=== PATIENT | female | born 1990 | race Caucasian/White ===

== ENCOUNTER 2017-04-19 18:20 | Emergency (ER) | payer OTHER ==
--- NOTE | 2017-04-19 18:42 | ERPHSYRPT ---
- History of Present Illness Time Seen by Provider: 04/19/17 18:23 Source: patient Exam Limitations: no limitations Physician History: patient cc of palpatations more frequently then usual times 2 days; notices mostly when trying to go to sleep; hasn't been sleeping well; no CP or SOB with it; NO N&V; no travel; no drugs 2 cups of coffee daily and maybe a coke; smokes ; no alcohol ; no meds OTC; no fevernot on IM meds Timing/Duration: yesterday, intermittent Activities at Onset: rest (trying to sleep), other (doesn't notice at work) Quality: other (none) Chest Pain Radiation: no radiation Severity of Pain-Max: none Severity of Pain-Current: none Modifying Factors: Improves With: lying down ( worse), other (activity improves) Nitro Today/Relief: no nitro taken today Aspirin Treatment Today: no aspirin today Associated Symptoms: denies symptoms Prior Chest Pain/Cardiac Workup: no prior chest pain Allergies/Adverse Reactions: No Known Drug Allergies Allergy (Unverified 05/09/15 21:17) Home Medications: No Home Meds 10/14/11 [History] Hx Tetanus, Diphtheria Vaccination/Date Given: No Hx Influenza Vaccination/Date Given: No Hx Pneumococcal Vaccination/Date Given: No - Review of Systems Constitutional: No Symptoms Eyes: No Symptoms Ears, Nose, & Throat: No Symptoms Respiratory: No Cough, No Dyspnea, No Wheezing Cardiac: Palpitations, No Chest Pain, No Edema, No Syncope, No Orthopnea Abdominal/Gastrointestinal: No Abdominal Pain, No Nausea, No Vomiting, No Diarrhea Genitourinary Symptoms: No Symptoms Musculoskeletal: No Symptoms Skin: No Symptoms Neurological: No Symptoms Psychological: Anxiety, No Alcohol Abuse, No Drug Abuse Endocrine: No Symptoms Hematologic/Lymphatic: No Symptoms Immunological/Allergic: No Symptoms - Past Medical History Pertinent Past Medical History: Yes Other Medical History: HIGH CHOLESERTEOL, pt states 3 miscarrages noted - Past Surgical History Past Surgical History: No - Social History Smoking Status: Current every day smoker Exposure to second hand smoke: Yes Alcohol Use: Socially Drug Use: none Patient Lives Alone: Yes Significant Family History: heart disease - Female History Hx Now: No - Nursing Vital Signs Nursing Vital Signs: Initial Vital Signs Temperature 97.5 F 04/19/17 18:36 Pulse Rate 126 H 04/19/17 18:36 Respiratory Rate 20 04/19/17 18:36 Blood Pressure 135/83 04/19/17 18:36 O2 Sat by Pulse Oximetry 97 04/19/17 18:36 Pain Scale Pain Intensity 0 - Physical Exam General Appearance: mild distress, alert, anxiety Eye Exam: PERRL/EOMI, eyes nml inspection, No photophobia Ears, Nose, Throat Exam: normal ENT inspection, TMs normal, pharynx normal, moist mucous membranes Neck Exam: normal inspection, non-tender, supple, full range of motion, No meningismus, No carotid bruit, No JVD, No thyromegaly Respiratory Exam: normal breath sounds, lungs clear, airway intact, No chest tenderness, No respiratory distress Cardiovascular Exam: regular rate/rhythm, normal heart sounds, normal peripheral pulses, tachycardia (120), No murmur, No friction rub Gastrointestinal/Abdomen Exam: soft, normal bowel sounds, No tenderness, No guarding, No pulsatile mass, No organomegaly Pelvic Exam: deferred Rectal Exam: deferred Back Exam: normal inspection, normal range of motion, No CVA tenderness, No vertebral tenderness, No rash Extremity Exam: normal inspection, normal range of motion, No aneesh's sign, No pedal edema Neurologic Exam: alert, oriented x 3, cooperative, 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 tested, normal mood/affect (anxious; mild hyperventilation), nml cerebellar function, nml station & gait, sensation nml Skin Exam: normal color, warm, dry, No rash Lymphatic Exam: No adenopathy SpO2 Interpretation: normal SpO2: 98 Oxygen Delivery: Room Air - Course Nursing assessment & vital signs reviewed: Yes EKG Interpreted by Me: RATE (119), Sinus Tach, NORMAL AXIS, NORMAL INTERVALS, NORMAL QRS, Non-specific ST Changes (low voldtage borderline and poor R wave from v1- V4; ), Other (unchanged from10-14-11) Rhythm Strip: Rate (120), Normal Sinus Rhythm - Radiology Exams Chest X-ray Interpretation: Interpreted by me, Negative, No Pneumonia, No Pneumothorax , Nml Heart Size, Nml Mediastinum Ordered Tests: Active Orders 24 hr Category Date Time Status In[employer] STAT Care 04/19/17 18:33 Active EKG-ER Only STAT Care 04/19/17 18:32 Active CHEST 1 VIEW (PORTABLE) Stat Exams 04/19/17 18:33 Taken BMP Stat Lab 04/19/17 18:45 Completed CBC W DIFF Stat Lab 04/19/17 18:45 Completed MAGNESIUM Stat Lab 04/19/17 18:45 Completed Medication Summary Generic Name Dose Route Start Last Admin Trade Name Carlos PRN Reason Stop Dose Admin Sodium Chloride 1,000 mls @ 100 mls/hr 04/19/17 18:45 04/19/17 18:54 Sodium Chloride 0.9% 1000 Ml IV 05/19/17 18:44 100 mls/hr .Q10H NITIN Administration Sodium Chloride 1,000 mls @ 500 mls/hr 04/19/17 19:27 04/19/17 19:36 Sodium Chloride 0.9% 1000 Ml IV 04/19/17 21:26 500 mls/hr .Q2H STA Administration Potassium Chloride 20 meq 04/19/17 19:43 Klor Con 10 Meq PO 04/19/17 19:44 STAT ONE Discontinued Medications Generic Name Dose Route Start Last Admin Trade Name Carlos PRN Reason Stop Dose Admin Metoprolol Tartrate 25 mg 04/19/17 18:46 04/19/17 18:54 Lopressor 25mg Tab PO 04/19/17 18:47 25 mg STAT ONE Administration Metoprolol Tartrate Confirm 04/19/17 18:53 Lopressor 25mg Tab Administered 04/19/17 18:54 Dose 25 mg .ROUTE .[facility] Lab/Rad Data: Laboratory Result Diagrams 04/19/17 18:45 04/19/17 18:45 Laboratory Results 04/19/17 04/19/17 Range/Units 18:45 18:45 WBC 6.3 (4.0-10.5) K/mm3 RBC 4.96 (4.1-5.4) M/mm3 Hgb 14.2 (12.0-16.0) gm/dl Hct 42.7 (35-47) % MCV 86.1 (78-100) fl MCH 28.6 (26-32) pg MCHC 33.3 (32-36) g/dl RDW 13.6 (11.5-14.0) % Plt Count 238 (150-450) K/mm3 MPV 11.3 H (6-9.5) fl Gran % 52.7 (36.0-66.0) % Lymphocytes % 34.6 (24.0-44.0) % Monocytes % 8.4 (0.0-12.0) % Eosinophils % 3.8 (0.00-5.0) % Basophils % 0.5 (0.0-0.4) % Basophils # 0.03 (0-0.4) Sodium 140 (136-145) mEq/L Potassium 3.2 L (3.5-5.1) mEq/L Chloride 103 (98-107) mEq/L Carbon Dioxide 24.1 (21-32) mEq/L Anion Gap 16.0 H (5-15) MEQ/L BUN 13 (9-20) mg/dL Creatinine 0.84 (0.55-1.30) mg/dl Estimated GFR > 60 ML/MIN Glucose 145 H (70-110) MG/DL Calcium 9.3 (8.5-10.1) mg/dL Magnesium 2.2 (1.8-2.4) mg/dL reviewed - Progress Progress: improved (after meds adn IV fluids), re-examined Air Movement: good Progress Note: 04/19/17 18:45 will get ekg; CXR and labs and recheck 04/19/17 19:28 rechecked and VS improving after meds and IV fluids; cbc wnl; w 04/19/17 19:43 improved with meds and IV fluids; discussed findings and instructions given Blood Culture(s) Obtained: No Antibiotics given: No Counseled pt/family regarding: lab results, diagnosis, need for follow-up, rad results, smoking cessation - Departure Time of Disposition: 20:00 Departure Disposition: Home Clinical Impression: Heart palpitations, Sinus tachycardia by electrocardiogram, Hypokalemia Clinical Impression: (Ruled Out): Strep pharyngitis Condition: Stable Critical Care Time: No Referrals: MARTIN BROWN [Primary Care Provider] - Instructions: Hypokalemia Additional Instructions: rest; good sleep; avoid caffeine and other stimulants; follow up with lmd to check thyroid Potassium rich diet Follow-up with family doctor as directed. Call for appointment. Return if any problems. If you smoke please stop. Call or follow up with your family doctor for assistance if you need it to stop. Please wear your seatbelt when driving. Have a nice day. Thank you for allowing us to participate in your care today. :o) Dr Elías Colon Prescriptions: Potassium Chloride 20 Meq [Klor-Con 20 MEQ] 20 meq PO DAILY #14 tab
[2017-04-19] MEDS ORDERED: Sodium Chloride 0.9% 1000 ML 1,000 ML IV SCH (18:45)
[2017-04-19] MEDS ORDERED: Lopressor 25MG Tab PO ONE (18:46)
[2017-04-19] MEDS ORDERED: Sodium Chloride 0.9% 1000 ML 1,000 ML ONE (18:53)
[2017-04-19] MEDS ORDERED: Lopressor 25MG Tab ONE (18:53)
[2017-04-19 19:19] LABS: BASOPHIL % 0.5 % (0.0-0.4); Eosinophil % 3.8 % (0.00-5.0); Granulocytes % 52.7 % (36.0-66.0); Lymphocytes % 34.6 % (24.0-44.0); Mean Cell Volume 86.1 fl (78-100); Mean Corpuscular Hemoglobin 28.6 pg (26-32); Mean Platelet Volume 11.3 fl (6-9.5); Monocytes % 8.4 % (0.0-12.0); Platelet Count 238 K/mm3 (150-450); Red Blood Count 4.96 M/mm3 (4.1-5.4); Red Cell Distribution Width 13.6 % (11.5-14.0); White Blood Count 6.3 K/mm3 (4.0-10.5)
[2017-04-19] MEDS ORDERED: Sodium Chloride 0.9% 1000 ML 1,000 ML IV STA (19:27)
[2017-04-19 19:30] LABS: BLOOD UREA NITROGEN 13 mg/dL (9-20); CHLORIDE 103 mEq/L (98-107); Carbon Dioxide 24.1 mEq/L (21-32); Glucose 145 MG/DL (70-110); MAGNESIUM 2.2 mg/dL (1.8-2.4); Potassium 3.2 mEq/L (3.5-5.1); SODIUM 140 mEq/L (136-145)
[2017-04-19] MEDS ORDERED: Klor Con 10 MEQ PO ONE ×2 (19:43→19:54)
[2017-04-19 19:56] VITALS: O2SAT 99
[2017-04-19 20:56] VITALS: BP 114/70; PULSE 96
[2017-04-20] MEDS ORDERED: Sodium Chloride 0.9% 1000 ML 1,000 ML ONE (05:28)
--- NOTE | 2017-04-20 09:08 | XRAY ---
Indication: Heart palpitations. Comparison: None Portable chest demonstrates normal heart, lungs, and bony thorax.
== END 2017-04-19 20:56 | disposition home or self-care (01) ==
LOC: ED 18:20
DX: R00.2 Palpitations (principal); R00.0 Tachycardia, unspecified; E87.6 Hypokalemia
CPT/HCPCS: 36000; 36415; 71010; 80048; 83735; 85025; 93005; 93041; 96360; 99284; A9270-GY

== ENCOUNTER 2019-01-31 13:09 | Emergency (ER) | payer OTHER ==
--- NOTE | 2019-01-31 13:36 | ERPHSYRPT ---
- History of Present Illness Time Seen by Provider: 01/31/19 13:35 Source: patient Exam Limitations: no limitations Physician History: 28 y/o white female 8 weeks presents with dizziness and headache this am. no head injury, no visual changes. improved at this time. pt denies vomiting and diarrhea. pt denies abd pain and denies vaginal bleeding Timing/Duration: today Severity: mild Character of Deficits: none Deficits: no difficulties Baseline/Normal Cognition: alert oriented x 3 Current Cognition: alert oriented x 3 Baseline Gait: walks w/o assistance Associated Symptoms: denies symptoms, headache Allergies/Adverse Reactions: No Known Drug Allergies Allergy (Unverified 01/31/19 13:39) Home Medications: Vits W-Ca,Fe,FA(<1Mg) [] 1 tab PO DAILY 01/31/19 [History] Progesterone, Micronized [Progesterone] 200 mg PO DAILY 01/31/19 [History] Sertraline HCl 50 mg [Zoloft 50 mg Tablet] 50 mg PO DAILY 01/31/19 [History] Hx Tetanus, Diphtheria Vaccination/Date Given: No Hx Influenza Vaccination/Date Given: No Hx Pneumococcal Vaccination/Date Given: No - Review of Systems Constitutional: No Symptoms Eyes: No Symptoms Ears, Nose, & Throat: No Symptoms Respiratory: No Symptoms Cardiac: No Symptoms Abdominal/Gastrointestinal: No Symptoms Genitourinary Symptoms: No Symptoms Musculoskeletal: No Symptoms Skin: No Symptoms Neurological: Dizziness (mild and improving), Headache (mild and improving) Psychological: Suicidal Ideations Endocrine: No Symptoms Hematologic/Lymphatic: No Symptoms Immunological/Allergic: No Symptoms All Other Systems: Reviewed and Negative - Past Medical History Pertinent Past Medical History: Yes Neurological History: No Pertinent History ENT History: No Pertinent History Cardiac History: High Cholesterol Respiratory History: No Pertinent History Endocrine Medical History: No Pertinent History Musculoskeletal History: No Pertinent History GI Medical History: No Pertinent History History: No Pertinent History Psycho-Social History: No Pertinent History Female Reproductive Disorders: No Pertinent History Other Medical History: HIGH CHOLESERTEOL, pt states 3 miscarrages noted - Past Surgical History Past Surgical History: No Neuro Surgical History: No Pertinent History Cardiac: No Pertinent History Respiratory: No Pertinent History Gastrointestinal: No Pertinent History Genitourinary: No Pertinent History Musculoskeletal: No Pertinent History Female Surgical History: No Pertinent History - Social History Smoking Status: Current every day smoker Exposure to second hand smoke: Yes Alcohol Use: Socially Drug Use: none Patient Lives Alone: Yes Significant Family History: heart disease - Nursing Vital Signs Nursing Vital Signs: Initial Vital Signs Temperature 98.2 F 01/31/19 13:28 Pulse Rate 86 01/31/19 13:28 Blood Pressure 116/63 01/31/19 13:28 O2 Sat by Pulse Oximetry 100 01/31/19 13:28 Pain Scale Pain Intensity 6 - Yonas Coma Scale Best Eye Response (Yonas): (4) open spontaneously Best Verbal Response ([place]): (5) oriented Best Motor Response ([place]): (6) obeys commands Yonas Total: 15 - Physical Exam General Appearance: no apparent distress, alert, anxiety Eye Exam: bilateral eye: normal inspection, PERRL, EOMI Ears, Nose, Throat Exam: normal ENT inspection, TMs normal, moist mucous membranes Neck Exam: normal inspection, non-tender, supple, full range of motion Respiratory: normal breath sounds, lungs clear, airway intact, No chest tenderness, No respiratory distress Cardiovascular: regular rate/rhythm, normal heart sounds, normal peripheral pulses Gastrointestinal: soft, normal bowel sounds, No tenderness Pelvic Exam: not done Rectal Exam: not done Back Exam: normal inspection, normal range of motion, No CVA tenderness, No vertebral tenderness Extremity Exam: normal inspection, normal range of motion, pelvis stable Mental Status: alert, oriented x 3, 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 Exam: normal hearing, normal speech, PERRL, tongue midline Coordination/Gait: normal finger to nose, normal gait, normal cerebellar function Motor/Sensory: no motor deficit, no sensory deficit Skin Exam: normal color, warm, dry SpO2 Interpretation: normal O2 Delivery: Room Air Ordered Tests: Active Orders 24 hr Category Date Time Status IV Insertion STAT Care 01/31/19 13:57 Active CBC W DIFF Stat Lab 01/31/19 14:05 Completed CMP Stat Lab 01/31/19 14:05 Completed UA W/RFX UR CULTURE Stat Lab 01/31/19 13:58 Completed Medication Summary Discontinued Medications Generic Name Dose Route Start Last Admin Trade Name Freq PRN Reason Stop Dose Admin Sodium Chloride 1,000 mls @ 999 mls/hr 01/31/19 13:57 01/31/19 14:18 Sodium Chloride 0.9% 1000 Ml IV 01/31/19 14:57 999 mls/hr .Q1H1M STA Administration Sodium Chloride Confirm 01/31/19 14:17 Sodium Chloride 0.9% 1000 Ml Administered 01/31/19 14:18 Dose 1,000 mls @ ud .ROUTE .[facility] Lab/Rad Data: Laboratory Result Diagrams 01/31/19 14:05 01/31/19 14:05 Laboratory Results 01/31/19 01/31/19 01/31/19 Range/Units 14:05 14:05 13:58 WBC 10.0 (4.0-10.5) K/mm3 RBC 4.17 (4.1-5.4) M/mm3 Hgb 12.9 (12.0-16.0) gm/dl Hct 37.2 (35-47) % MCV 89.2 (78-100) fl MCH 30.9 (26-32) pg MCHC 34.7 (32-36) g/dl RDW 12.7 (11.5-14.0) % Plt Count 251 (150-450) K/mm3 MPV 10.6 H (6-9.5) fl Gran % 72.6 H (36.0-66.0) % Eos # (Auto) 0.15 (0-0.5) Absolute Lymphs (auto) 1.85 (1.0-4.6) Absolute Monos (auto) 0.73 (0.0-1.3) Lymphocytes % 18.4 L (24.0-44.0) % Monocytes % 7.3 (0.0-12.0) % Eosinophils % 1.5 (0.00-5.0) % Basophils % 0.2 (0.0-0.4) % Absolute Granulocytes 7.29 H (1.4-6.9) Basophils # 0.02 (0-0.4) Sodium 138 (137-145) mmol/L Potassium 3.7 (3.5-5.1) mmol/L Chloride 104 (98-107) mmol/L Carbon Dioxide 22 (22-30) mmol/L Anion Gap 15.2 H (5-15) MEQ/L BUN 8 (7-17) mg/dL Creatinine 0.51 L (0.52-1.04) mg/dL Estimated GFR > 60.0 ML/MIN Glucose 87 (74-106) mg/dL Calcium 9.0 (8.4-10.2) mg/dL Total Bilirubin 0.20 (0.2-1.3) mg/dL AST 28 (14-36) U/L ALT 26 (0-35) U/L Alkaline Phosphatase 88 (38-126) U/L Serum Total Protein 7.7 (6.3-8.2) g/dL Albumin 4.3 (3.5-5.0) g/dL Urine Color YELLOW (YELLOW) Urine Appearance CLEAR (CLEAR) Urine pH 6.0 (5-6) Ur Specific [place] 1.011 (1.005-1.025) Urine Protein NEGATIVE (Negative) Urine Ketones NEGATIVE (NEGATIVE) Urine Blood NEGATIVE (0-5) Lg/ul Urine Nitrite NEGATIVE (NEGATIVE) Urine Bilirubin NEGATIVE (NEGATIVE) Urine Urobilinogen NEGATIVE (0-1) mg/dL Ur Leukocyte Esterase NEGATIVE (NEGATIVE) Urine WBC (Auto) NONE (0-5) /HPF Urine RBC (Auto) NONE (0-2) /HPF U Epithel Cells (Auto) RARE (FEW) /HPF Urine Bacteria (Auto) RARE (NEGATIVE) /HPF Urine Culture Reflexed NO (NO) Urine Glucose NEGATIVE (NEGATIVE) mg/dL - Progress Progress: improved, re-examined Progress Note: 01/31/19 15:25 pt states she is feeling much better. sig improvement in headache and dizziness. she states she is ready to go home Counseled pt/family regarding: lab results, diagnosis, need for follow-up - Departure Departure Disposition: Home Clinical Impression: Dizziness, nonspecific, Headache Condition: Stable Critical Care Time: No Referrals: DOCTOR,NO FAMILY [Primary Care Provider] - Additional Instructions: drink plenty of fluids. follow up with assistant spa manager for further management.
[2019-01-31 13:39] VITALS: O2SAT 100
[2019-01-31] MEDS ORDERED: Sodium Chloride 0.9% 1000 ML 1,000 ML IV STA (13:57)
[2019-01-31 14:14] LABS: Absolute Neutrophil Ct (ANC) 7.29 (1.4-6.9); BASOPHIL % 0.2 % (0.0-0.4); Basophil (Absolute #) 0.02 (0-0.4); Eosinophil % 1.5 % (0.00-5.0); Eosinophil (Absolute #) 0.15 (0-0.5); Hematocrit 37.2 % (35-47); Hemoglobin 12.9 gm/dl (12.0-16.0); Lymphocyte (Absolute #) 1.85 (1.0-4.6); Lymphocytes % 18.4 % (24.0-44.0); Mean Cell Volume 89.2 fl (78-100); Mean Corpuscular Hemoglobin 30.9 pg (26-32); Mean Corpuscular Hgb Concent. 34.7 g/dl (32-36); Mean Platelet Volume 10.6 fl (6-9.5); Monocyte (Absolute #) 0.73 (0.0-1.3); Monocytes % 7.3 % (0.0-12.0); Neutrophil % 72.6 % (36.0-66.0); Platelet Count 251 K/mm3 (150-450); Red Blood Count 4.17 M/mm3 (4.1-5.4); Red Cell Distribution Width 12.7 % (11.5-14.0)
[2019-01-31] MEDS ORDERED: Sodium Chloride 0.9% 1000 ML 1,000 ML ONE (14:17)
[2019-01-31 14:31] LABS: ALBUMIN 4.3 g/dL (3.5-5.0); ALKALINE PHOSPHATASE 88 U/L (38-126); ANION GAP 15.2 MEQ/L (5-15); BLOOD UREA NITROGEN 8 mg/dL (7-17); CHLORIDE 104 mmol/L (98-107); Carbon Dioxide 22 mmol/L (22-30); Creatinine 1 0.51 mg/dL (0.52-1.04); Glucose 87 mg/dL (74-106); Potassium 3.7 mmol/L (3.5-5.1); SGOT/AST 28 U/L (14-36); SGPT/ALT 26 U/L (0-35); SODIUM 138 mmol/L (137-145); Total Protein 7.7 g/dL (6.3-8.2)
[2019-01-31 14:47] LABS: Appearance CLEAR (CLEAR); Bacteria RARE /HPF (NEGATIVE); Bilirubin NEGATIVE (NEGATIVE); Blood NEGATIVE Ery/ul (0-5); Epithelial Cells RARE /HPF (FEW); Glucose NEGATIVE (NEGATIVE); Ketones NEGATIVE (NEGATIVE); Leukocyte Esterase NEGATIVE (NEGATIVE); Nitrite NEGATIVE (NEGATIVE); Protein,Urine Dip NEGATIVE (Negative); Specific Gravity 1.011 (1.005-1.025); Urobilinogen NEGATIVE mg/dL (0-1)
[2019-01-31 15:09] VITALS: BP 91/51
[2019-01-31 15:48] VITALS: PULSE 79
== END 2019-01-31 15:52 | disposition home or self-care (01) ==
LOC: ED 13:09
DX: R42 Dizziness and giddiness (principal); R51 Headache; Z3A.08 8 weeks gestation of pregnancy
CPT/HCPCS: 36000; 36415; 80053; 81001; 85025; 96360; 99284

== ENCOUNTER 2022-01-15 22:48 | Emergency (ER) | payer MEDICAID, OTHER ==
[2022-01-15] MEDS ORDERED: Sodium Chloride 0.9% 1000 ML 1,000 ML IV STA (23:07)
[2022-01-15] MEDS ORDERED: TYLENOL 325 MG PO ONE (23:07)
[2022-01-15] MEDS ORDERED: Sodium Chloride 0.9% 1000 ML 1,000 ML ONE (23:11)
[2022-01-15] MEDS ORDERED: TYLENOL 325 MG ONE (23:11)
[2022-01-15 23:36] LABS: Absolute Neutrophil Ct (ANC) 7.23 x10^3/uL (1.4-6.9); Basophil (Absolute #) 0.04 x10^3/uL (0-0.4); Eosinophil % 1.6 % (0.00-5.0); Eosinophil (Absolute #) 0.18 x10^3/uL (0-0.5); Hematocrit 37.7 % (35-47); Hemoglobin 12.4 g/dL (12.0-16.0); Lymphocyte (Absolute #) 2.95 x10^3/uL (1.0-4.6); Lymphocytes % 26.1 % (24.0-44.0); Mean Cell Volume 87.1 fL (78-100); Mean Corpuscular Hemoglobin 28.6 pg (26-32); Mean Corpuscular Hgb Concent. 32.9 g/dL (32-36); Mean Platelet Volume 11.2 fL (7.5-11.0); Monocyte (Absolute #) 0.85 x10^3/uL (0.0-1.3); Monocytes % 7.5 % (0.0-12.0); Platelet Count 214 x10^3/uL (150-450); Red Blood Count 4.33 x10^6/uL (4.1-5.4); Red Cell Distribution Width 13.8 % (11.5-14.0); White Blood Count 11.3 x10^3/uL (4.0-10.5)
--- NOTE | 2022-01-15 23:37 | ERPHSYRPT ---
- History of Present Illness Time Seen by Provider: 01/15/22 22:53 Historian: patient Exam Limitations: no limitations Patient Subjective Stated Complaint: pt states "I had a vaginal and almost 6 weeks ago. I have been having this pain that comes and goes in my s tomach." Triage Nursing Assessment: pt ambulated into the er; pt is axo x4; c/o abd pain; pt states 6/10 pain to lower abd; abd is soft, round, tender; tenderness present to lower abd; hyperactive bowel sounds in all quads; pt denies urinary difficulties; pt denies N/V/D; tachycardic; skin PDW Physician History: 31 years old female twin 6 weeks ago presented in the ER with chief complaint of lower abdominal/pelvic pain for the last 3 weeks, sharp cramping moderate intensity pain with progressive worsening. Reports vaginal bleeding is improved and still have some discharge which is getting better. Denies any urinary complaints. Taking Tylenol which does help with the pain but now having subjective feeling of fever and chills. Timing/Duration: week(s) (3), gradual onset, worse Activities at Onset: rest Quality: cramping, sharpness Abdominal Pain Onset Location: suprapubic, other Severity of Pain-Max: moderate Severity of Pain-Current: moderate Modifying Factors: Improves With: analgesics. Worsens With: palpation Associated Symptoms: fever/chills Previous symptoms: no prior history Allergies/Adverse Reactions: No Known Drug Allergies Allergy (Verified 01/15/22 23:14) Home Medications: No Reportable Medications [No Reported Medications] 01/15/22 [History] Hx Tetanus, Diphtheria Vaccination/Date Given: Yes Hx Influenza Vaccination/Date Given: No Hx Pneumococcal Vaccination/Date Given: No Travel Risk - International Travel Have you traveled outside of the country in past 3 weeks: No - Coronavirus Screening Are you exhibiting any of the following symptoms?: Yes Symptoms: Headaches/Body Aches/Fatigue Close contact with a COVID-19 positive Pt in past 14-21 Days: No - Vaccine Status Have you recieved a Covid-19 vaccination: Yes 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 - Vaccination Dates Date of 2cond Vaccination (if applicable): n/a - Review of Systems Constitutional: Fever, Chills Eyes: No Symptoms Ears, Nose, & Throat: No Symptoms Respiratory: No Symptoms Cardiac: No Symptoms Abdominal/Gastrointestinal: Abdominal Pain Genitourinary Symptoms: Vaginal Discharge Musculoskeletal: No Symptoms Skin: No Symptoms Neurological: No Symptoms Psychological: No Symptoms Endocrine: No Symptoms Hematologic/Lymphatic: No Symptoms Immunological/Allergic: No Symptoms - Past Medical History Pertinent Past Medical History: Yes Neurological History: No Pertinent History ENT History: No Pertinent History Cardiac History: High Cholesterol Respiratory History: No Pertinent History Endocrine Medical History: No Pertinent History Musculoskeletal History: No Pertinent History GI Medical History: No Pertinent History History: No Pertinent History Psycho-Social History: No Pertinent History Female Reproductive Disorders: No Pertinent History Other Medical History: HIGH CHOLESERTEOL, pt states 3 miscarrages noted - Past Surgical History Past Surgical History: Yes Neuro Surgical History: No Pertinent History Cardiac: No Pertinent History Respiratory: No Pertinent History Gastrointestinal: No Pertinent History Genitourinary: No Pertinent History Musculoskeletal: No Pertinent History Female Surgical History: Section, Tubal Ligation - Social History Smoking Status: Light tobacco smoker Exposure to second hand smoke: No Alcohol Use: Socially Drug Use: none Patient Lives Alone: No Significant Family History: heart disease - Female History Hx Now: No - Nursing Vital Signs Nursing Vital Signs: Initial Vital Signs Temperature 98.3 F 01/15/22 22:55 Pulse Rate 109 H 01/15/22 22:55 Respiratory Rate 18 01/15/22 22:55 Blood Pressure 133/76 01/15/22 22:55 O2 Sat by Pulse Oximetry 99 01/15/22 22:55 Pain Scale Pain Intensity 6 - Physical Exam General Appearance: no apparent distress, alert Eye Exam: PERRL/EOMI Ears, Nose, Throat Exam: normal ENT inspection Neck Exam: normal inspection, non-tender, supple, full range of motion Respiratory Exam: normal breath sounds, lungs clear Cardiovascular Exam: normal heart sounds, tachycardia Gastrointestinal/Abdomen Exam: soft, normal bowel sounds, tenderness (Lower abdomen) Back Exam: normal inspection, normal range of motion Extremity Exam: normal inspection, normal range of motion Neurologic Exam: alert, oriented x 3, cooperative Skin Exam: normal color SpO2 Interpretation: normal SpO2: 99 O2 Delivery: Room Air Ordered Tests: Active Orders 24 hr Category Date Time Status IV Insertion STAT Care 01/15/22 23:07 Active NPO (ED) STAT Care 01/15/22 23:07 Active ABDOMEN AND PELVIS W/0 CONTRAS [CT] Stat Exams 01/15/22 23:07 Ordered BLOOD CULTURE Stat Lab 01/15/22 23:30 Received CBC W DIFF Stat Lab 01/15/22 23:30 Completed CMP Stat Lab 01/15/22 23:30 Completed Lactic Acid Stat Lab 01/15/22 23:07 Completed UA W/RFX CULTURE Stat Lab 01/15/22 23:09 Completed Medication Summary Discontinued Medications Generic Name Dose Route Start Last Admin Trade Name Carlos PRN Reason Stop Dose Admin Acetaminophen 975 mg 01/15/22 23:07 01/15/22 23:13 Acetaminophen 325 Mg Tablet PO 01/15/22 23:08 975 mg STAT ONE Administration Acetaminophen Confirm 01/15/22 23:11 Acetaminophen 325 Mg Tablet Administered 01/15/22 23:12 Dose 975 mg .ROUTE .STK-MED ONE Sodium Chloride 1,000 mls @ 999 mls/hr 01/15/22 23:07 01/15/22 23:13 Sodium Chloride 0.9% 1000 Ml IV 01/16/22 00:07 999 mls/hr .Q1H1M STA Administration Sodium Chloride Confirm 01/15/22 23:11 Sodium Chloride 0.9% 1000 Ml Administered 01/15/22 23:12 Dose 1,000 mls @ ud .ROUTE .STK-MED ONE Lab/Rad Data: Laboratory Result Diagrams 01/15/22 23:30 01/15/22 23:30 Laboratory Results 01/15/22 01/15/22 01/15/22 Range/Units 23:30 23:30 23:09 WBC 11.3 H (4.0-10.5) x10^3/uL RBC 4.33 (4.1-5.4) x10^6/uL Hgb 12.4 (12.0-16.0) g/dL Hct 37.7 (35-47) % MCV 87.1 (78-100) fL MCH 28.6 (26-32) pg MCHC 32.9 (32-36) g/dL RDW 13.8 (11.5-14.0) % Plt Count 214 (150-450) x10^3/uL MPV 11.2 H (7.5-11.0) fL Gran % 64.0 (36.0-66.0) % Immature Gran % (Auto) 0.4 (0.00-0.4) % Nucleat RBC Rel Count 0.0 (0.00-0.1) % Eos # (Auto) 0.18 (0-0.5) x10^3/uL Immature Gran # (Auto) 0.04 H (0.00-0.03) x10^3u/L Absolute Lymphs (auto) 2.95 (1.0-4.6) x10^3/uL Absolute Monos (auto) 0.85 (0.0-1.3) x10^3/uL Absolute Nucleated RBC 0.00 (0.00-0.01) x10^3u/L Lymphocytes % 26.1 (24.0-44.0) % Monocytes % 7.5 (0.0-12.0) % Eosinophils % 1.6 (0.00-5.0) % Basophils % 0.4 (0.0-0.4) % Absolute Granulocytes 7.23 H (1.4-6.9) x10^3/uL Basophils # 0.04 (0-0.4) x10^3/uL Sodium 136 L (137-145) mmol/L Potassium 3.7 (3.5-5.1) mmol/L Chloride 103 (98-107) mmol/L Carbon Dioxide 24 (22-30) mmol/L Anion Gap 13.2 (5-15) MEQ/L BUN 12 (7-17) mg/dL Creatinine 0.60 (0.52-1.04) mg/dL Estimated GFR > 60.0 ML/MIN Glucose 113 H (74-106) mg/dL Lactic Acid (0.4-2.0) Calcium 9.0 (8.4-10.2) mg/dL Total Bilirubin 0.40 (0.2-1.3) mg/dL AST 32 (14-36) U/L ALT 32 (0-35) U/L Alkaline Phosphatase 164 H (38-126) U/L Serum Total Protein 8.2 (6.3-8.2) g/dL Albumin 4.6 (3.5-5.0) g/dL Urinalys Dipstick Clnc MAIN LAB Urine Color YELLOW (YELLOW) Urine Appearance CLEAR (CLEAR) Urine pH 6.5 (5-6) Ur Specific [place] 1.020 (1.005-1.025) POC Urine Protein Conf NEGATIVE (Negative) Urine Ketones SMALL (NEGATIVE) Urine Nitrite NEGATIVE (NEGATIVE) Urine Bilirubin SMALL (NEGATIVE) Urine Urobilinogen 0.2 (0-1) mg/dL Urine Leukocytes NEGATIVE (NEGATIVE) Urine WBC (Auto) 6-10 (0-5) /HPF Urine RBC (Auto) NONE (0-2) /HPF U Epithel Cells (Auto) RARE (FEW) /HPF Urine Bacteria (Auto) NONE (NEGATIVE) /HPF Urine RBC NEGATIVE (0-5) Lg/ul Urine Mucus (Auto) SLIGHT (NEGATIVE) /HPF Ur Culture Indicated? NO Urine Glucose 100 (NEGATIVE) mg/dL 01/15/22 Range/Units 23:07 WBC (4.0-10.5) x10^3/uL RBC (4.1-5.4) x10^6/uL Hgb (12.0-16.0) g/dL Hct (35-47) % MCV (78-100) fL MCH (26-32) pg MCHC (32-36) g/dL RDW (11.5-14.0) % Plt Count (150-450) x10^3/uL MPV (7.5-11.0) fL Gran % (36.0-66.0) % Immature Gran % (Auto) (0.00-0.4) % Nucleat RBC Rel Count (0.00-0.1) % Eos # (Auto) (0-0.5) x10^3/uL Immature Gran # (Auto) (0.00-0.03) x10^3u/L Absolute Lymphs (auto) (1.0-4.6) x10^3/uL Absolute Monos (auto) (0.0-1.3) x10^3/uL Absolute Nucleated RBC (0.00-0.01) x10^3u/L Lymphocytes % (24.0-44.0) % Monocytes % (0.0-12.0) % Eosinophils % (0.00-5.0) % Basophils % (0.0-0.4) % Absolute Granulocytes (1.4-6.9) x10^3/uL Basophils # (0-0.4) x10^3/uL Sodium (137-145) mmol/L Potassium (3.5-5.1) mmol/L Chloride (98-107) mmol/L Carbon Dioxide (22-30) mmol/L Anion Gap (5-15) MEQ/L BUN (7-17) mg/dL Creatinine (0.52-1.04) mg/dL Estimated GFR ML/MIN Glucose (74-106) mg/dL Lactic Acid 1.2 (0.4-2.0) Calcium (8.4-10.2) mg/dL Total Bilirubin (0.2-1.3) mg/dL AST (14-36) U/L ALT (0-35) U/L Alkaline Phosphatase (38-126) U/L Serum Total Protein (6.3-8.2) g/dL Albumin (3.5-5.0) g/dL Urinalys Dipstick Clnc Urine Color (YELLOW) Urine Appearance (CLEAR) Urine pH (5-6) Ur Specific [place] (1.005-1.025) POC Urine Protein Conf (Negative) Urine Ketones (NEGATIVE) Urine Nitrite (NEGATIVE) Urine Bilirubin (NEGATIVE) Urine Urobilinogen (0-1) mg/dL Urine Leukocytes (NEGATIVE) Urine WBC (Auto) (0-5) /HPF Urine RBC (Auto) (0-2) /HPF U Epithel Cells (Auto) (FEW) /HPF Urine Bacteria (Auto) (NEGATIVE) /HPF Urine RBC (0-5) Lg/ul Urine Mucus (Auto) (NEGATIVE) /HPF Ur Culture Indicated? Urine Glucose (NEGATIVE) mg/dL - Progress Progress: improved Progress Note: 01/16/22 00:20 She is given Tylenol and fluids, on reevaluation feeling better. She has a white count of 11, grossly unremarkable chemistries. CT abdomen pelvis showed some edematous changes in the area of but no abscess collection or m ass. Recommended taking Tylenol and outpatient follow-up with her [facility]. Discussed signs symptoms of worsening needing return to ER which she seems understanding. Counseled pt/family regarding: lab results, diagnosis, need for follow-up, rad results - Departure Departure Disposition: Home Clinical Impression: Pelvic pain Condition: Stable Critical Care Time: No Referrals: MARTIN BROWN [Primary Care Provider] - Follow up/PCP as directed Instructions: Severe Abdominal Pain, Adult (DC) Additional Instructions: Take Tylenol as needed. Follow-up with your OB for reevaluation early next week. Return to ER for worsening pain, persistent high-grade fever chills etc.
[2022-01-15 23:39] LABS: Appearance CLEAR (CLEAR); Bilirubin SMALL (NEGATIVE); Glucose 100 mg/dL (NEGATIVE); Ketones SMALL (NEGATIVE); RBC NEGATIVE Ery/ul (0-5)
[2022-01-15 23:40] LABS: Dipstick done @ ? MAIN LAB; Epithelial Cells RARE /HPF (FEW); Mucus SLIGHT /HPF (NEGATIVE); Nitrite NEGATIVE (NEGATIVE); Ph 6.5 (5-6); Protein,Urine Dip NEGATIVE (Negative); Urobilinogen 0.2 mg/dL (0-1)
[2022-01-15 23:41] LABS: Urine Cultured Indicated? NO
[2022-01-15 23:50] LABS: ALBUMIN 4.6 g/dL (3.5-5.0); ALKALINE PHOSPHATASE 164 U/L (38-126); ANION GAP 13.2 MEQ/L (5-15); BLOOD UREA NITROGEN 12 mg/dL (7-17); CHLORIDE 103 mmol/L (98-107); Carbon Dioxide 24 mmol/L (22-30); EST GLOMERULAR FILTRATION RATE > 60.0 ML/MIN; Glucose 113 mg/dL (74-106); Potassium 3.7 mmol/L (3.5-5.1); SGOT/AST 32 U/L (14-36); SGPT/ALT 32 U/L (0-35); SODIUM 136 mmol/L (137-145); Total Protein 8.2 g/dL (6.3-8.2)
[2022-01-16 00:32] VITALS: BP 100/60; PULSE 96; O2SAT 97
--- NOTE | 2022-01-18 09:52 | XRAY ---
Indication: Lower abdomen pain. 6 weeks with section. Multiple contiguous axial images obtained through the abdomen and pelvis without contrast. Comparison: None Lung bases clear. Heart not enlarged. Stomach distended with food/fluid. Noncontrasted stomach and bowel loops appear nonobstructed with normal appendix. Mild diffuse scattered colonic fecal debris. Gallbladder contracted without gallstones. 14 cm splenomegaly. No free fluid/air. Remaining liver, gallbladder, pancreas, spleen, adrenal glands, kidneys, ureters, bladder, uterus, and aorta are unremarkable for noncontrast exam. Osseous structures intact. Anterior pelvic abdominal wall demonstrates mild postsurgical changes related to section without walled off fluid collection/emphysema. Impression: 1. Diffuse fecal stasis, splenomegaly, and abdominal wall postsurgical changes. 2. Remaining CT abdomen/pelvis without contrast exam is negative. Comment: Preliminary interpretation made by [facility]. No critical discrepancy.
== END 2022-01-16 00:34 | disposition home or self-care (01) ==
LOC: ED 22:48
DX: R10.2 Pelvic and perineal pain (principal); E78.5 Hyperlipidemia, unspecified; Z72.0 Tobacco use
CPT/HCPCS: 36000; 36415; 74176; 80053; 81015; 83605; 85025; 87040; 96360; 99284; A9270-GY

== ENCOUNTER 2022-12-21 07:25 | Day surgery (SDC) | payer MEDICAID ==
[2022-12-21] MEDS ORDERED: CEFAZOLIN 2 GM-D5W BAG** 2 GM/50 ML ML IV SCH (07:30)
[2022-12-21] MEDS ORDERED: Lactated Ringers 1,000 ML IV SCH (07:30)
[2022-12-21 08:01] VITALS: RESP 18
[2022-12-21 08:01] LABS: HCG URINE TEST NEGATIVE (NEGATIVE)
[2022-12-21] MEDS ORDERED: Versed 2 MG/2 ML Injection IV PRN (08:33)
[2022-12-21] MEDS ORDERED: Versed 2 MG/2 ML Injection ONE (09:02)
[2022-12-21] MEDS ORDERED: SUBLIMAZE 100 MCG/2 ML ONE (10:21)
[2022-12-21] MEDS ORDERED: DIPRIVAN 200 MG/20 ML IV ONE (10:21)
[2022-12-21] MEDS ORDERED: Decadron 4 MG INJ ONE (10:21)
[2022-12-21] MEDS ORDERED: Xylocaine-Mpf 2% 5 Ml Vial ONE (10:21)
[2022-12-21] MEDS ORDERED: Quelicin Fliptop 200 MG/10 ML ONE (10:21)
[2022-12-21] MEDS ORDERED: Zofran 4 MG/2 ML VIAL ONE (10:21)
[2022-12-21] MEDS ORDERED: TORAdol 30 mg Injection ONE (10:43)
[2022-12-21] MEDS ORDERED: Lactated Ringers 1,000 ML IV ONE (10:48)
[2022-12-21] MEDS ORDERED: Hydromorphone 1 mg/ml Injection ONE (11:26)
[2022-12-21 12:18] VITALS: PULSE 76; O2SAT 97
[2022-12-21 12:27] VITALS: BP 143/95; TEMP 97
--- NOTE | 2022-12-22 08:10 | OP ---
SURGERY DATE/TIME: 12/21/2022 1027 PREOPERATIVE DIAGNOSIS: Menorrhagia, dysmenorrhea, dyspareunia. POSTOPERATIVE DIAGNOSIS: Menorrhagia, dysmenorrhea, dyspareunia. PROCEDURE: Hysteroscopy D&C with NovaSure ablation. SURGEON: Tucker Epperson D.O. FOSTER PARENT: Leida Calhoun, surgical aide. ANESTHESIA: General. ESTIMATED BLOOD LOSS: Minimal. COMPLICATIONS: None. INDICATIONS: The risks, benefits, indications and alternatives of the procedure were reviewed with the patient prior to procedure. The patient understood the risk of infection, bleeding, bowel injury, bladder injury, uterine perforation, pelvic infection and thromboembolic disorder associated with this surgery and desires to have this surgery as a possible means to alleviate her current medical condition. DESCRIPTION OF PROCEDURE AND FINDINGS: At this point the patient is taken to the operating room, given general sedation, placed in dorsal lithotomy position, prepped and draped in the usual sterile fashion. A weighted speculum is then placed in the patient's vagina and the anterior lip of the cervix grasped with a single tooth tenaculum. Endocervical dilators were advanced through the endocervical canal as a means to dilate the cervix where a 5 mm hysteroscope was then placed into fundus of the uterus where visualization appeared to be within normal limits with no gross abnormalities that were noted. From this point the hysteroscope was removed and then the curette was then placed into the fundus of the uterus and curettage was performed in all quadrants of the uterus retrieving a mild amount of amount of tissue. Hemostasis was visualized. At this point, the NovaSure I was then placed in the vaginal region taken towards the fundal region and retracted approximately 1 cm with a length of 6.5 cm. The instrument was engaged with a width of 3.5 cm. The instrument was turned on for an ablative time of 46 seconds. After complete ablation, the NovaSure was disengaged and removed from the uterine cavity without complication. From this point, all instruments were then removed from the patient's vaginal region. The patient was then taken out of the dorsal lithotomy position and was taken out of anesthesia and was then taken to the recovery room in stable condition. All instruments and laps were accounted for x2.
== END 2022-12-21 12:35 | disposition home or self-care (01) ==
LOC: SDC 07:25
PROVIDERS: ATTEND Obstetrics & Gynecology
DX: N92.0 Excessive and frequent menstruation with regular cycle (principal); N94.6 Dysmenorrhea, unspecified; N94.10 Unspecified dyspareunia
CPT/HCPCS: 81025; J0330; J0690; J1100; J1170; J1885; J2250; J2405; J2704; J3010

== ENCOUNTER 2023-07-17 05:04 | Emergency (ER) | payer SELFPAY ==
[2023-07-17 05:19] VITALS: TEMP 97.6
[2023-07-17] MEDS ORDERED: MOTRIN 600 MG ONE (05:28)
[2023-07-17] MEDS: MOTRIN 600 MG PO ONE (05:29)
--- NOTE | 2023-07-17 05:42 | ERPHSYRPT ---
- History of Present Illness Source: patient Exam Limitations: no limitations Patient Subjective Stated Complaint: pt states chest pain Triage Nursing Assessment: pt ambulated into the er; pt transfer self to cot; axo x4; c/o chest pain; pt states pain 10/10 to chest; pt states pain is worse with deep breath; clear apical heart tone; clear lung sounds in all lobes; stron g ottoniel radial pulses; strong ottoinel pedal pulses; no edema present; skin PDW; no respiratory distress present; vitals wnl Timing/Duration: day(s) (4d) Severity: mild Associated Symptoms: chest pain, headaches, No nausea, No vomiting, No abdominal pain, No shortness of breath, No diaphoresis, No cough, No chills, No fever Hx Tetanus, Diphtheria Vaccination/Date Given: Yes Hx Influenza Vaccination/Date Given: No Hx Pneumococcal Vaccination/Date Given: No Immunizations Up to Date: No <NOELLE RANDALL - Last Filed: 07/17/23 07:06> <MARTHA KEITH - Last Filed: 07/17/23 08:10> - History of Present Illness Time Seen by Provider: 07/17/23 05:25 Physician History: 33yo f presents via private vehicle for b/l anterior neck pain, worse on the left that started 4d ago. Pt states the pain radiates into her left side upper chest as well, this radiating pain began this AM. Pt reports she had URI last week that she recovered from, pt currently denies sore throat, difficulty swallowing, denies fevers, soa, n/v/abdominal pain. Pt does endorse some tension HAs recently that she correlates to this neck pain. (NOELLE RANDALL) Allergies/Adverse Reactions: No Known Drug Allergies Allergy (Verified 07/17/23 05:06) Home Medications: Sertraline HCl 50 mg [Zoloft 50 mg Tablet] 1 tab PO DAILY 11/05/22 [History] Travel Risk - International Travel Have you traveled outside of the country in past 3 weeks: No - Emerging Infectious Disease Are you exhibiting symptoms associated with any current EIDs: No <NOELLE RANDALL - Last Filed: 07/17/23 07:06> - Review of Systems Constitutional: No Symptoms Ears, Nose, & Throat: No Ear Pain, No Nose Pain, No Nose Congestion, No Sinus Drainage, No Throat Pain, No Throat Swelling, No Painful Swallowing Respiratory: No No Symptoms Cardiac: Chest Pain (radiating from neck down to upper chest) Abdominal/Gastrointestinal: No Symptoms <PRAKASHNOELLE WALLACE - Last Filed: 07/17/23 07:06> - Past Medical History Pertinent Past Medical History: Yes Neurological History: No Pertinent History ENT History: No Pertinent History Cardiac History: High Cholesterol Respiratory History: No Pertinent History Endocrine Medical History: No Pertinent History Musculoskeletal History: No Pertinent History GI Medical History: No Pertinent History History: No Pertinent History Psycho-Social History: Anxiety, Depression Female Reproductive Disorders: No Pertinent History Other Medical History: HIGH CHOLESERTEOL, pt states 3 miscarrages noted - Past Surgical History Past Surgical History: Yes Neuro Surgical History: No Pertinent History Cardiac: No Pertinent History Respiratory: No Pertinent History Gastrointestinal: No Pertinent History Genitourinary: No Pertinent History Musculoskeletal: No Pertinent History Female Surgical History: Section, Tubal Ligation Other Surgical History: ablation Significant Family History: heart disease - Female History Hx Now: No - Social History Smoking Status: Smoker, status unknown Exposure to second hand smoke: Yes Alcohol Use: Socially Drug Use: none Patient Lives Alone: No <PRAKASHNOELLE WALLACE Last Filed: 07/17/23 07:06> - Physical Exam General Appearance: no apparent distress, alert Neck Exam: normal inspection, supple, full range of motion, lymphadenopathy (mild anterior cervical ), other (mild hypertonicity of left side SCM), No meningismus, No Brudzinski, No midline tenderness, No thyromegaly Respiratory Exam: normal breath sounds, lungs clear, airway intact, No chest tenderness, No respiratory distress, No diminished breath sounds Cardiovascular Exam: regular rate/rhythm, normal heart sounds, normal peripheral pulses, capillary refill <2 sec, No edema, No pulse deficit Gastrointestinal/Abdomen Exam: soft, No tenderness, No distention Neurologic Exam: alert, oriented x 3, cooperative, normal mood/affect, nml station & gait, sensation nml, No motor deficits, No sensory deficit SpO2 Interpretation: normal SpO2: 100 O2 Delivery: Room Air <PRAKASHNOELLE RODRIGO - Last Filed: 07/17/23 07:06> - Nursing Vital Signs Nursing Vital Signs: Initial Vital Signs Temperature 97.6 F 07/17/23 05:05 Pulse Rate 88 07/17/23 05:05 Respiratory Rate 16 07/17/23 05:05 Blood Pressure 138/76 07/17/23 05:05 O2 Sat by Pulse Oximetry 100 07/17/23 05:05 Pain Scale Pain Intensity 5 - Course EKG Interpreted by Me: RATE (84), Sinus Rhythm, NORMAL ST-T, Other (qtcb 460, AR 158, not suggestive of ischemia) <NOELLE RANDALL - Last Filed: 07/17/23 07:06> Ordered Tests: Active Orders 24 hr Category Date Time Status CHEST 2 VIEWS (PA AND LAT) Stat Exams 07/17/23 05:26 Taken NECK WITH CONTRAST [CT] Stat Exams 07/17/23 05:42 Completed CBC W DIFF Stat Lab 07/17/23 05:20 Completed CMP Stat Lab 07/17/23 05:20 Completed TROPONIN Q4H Lab 07/17/23 05:20 Completed TROPONIN Q4H Lab 07/17/23 09:30 Ordered TROPONIN Q4H Lab 07/17/23 13:30 Ordered TSH [TSH, 3RD Generation] Stat Lab 07/17/23 05:20 Completed Medication Summary Discontinued Medications Generic Name Dose Route Start Last Admin Trade Name Eliaq PRN Reason Stop Dose Admin Ibuprofen 600 mg 07/17/23 05:26 07/17/23 05:29 Ibuprofen 600 Mg Tablet PO 07/17/23 05:27 600 mg STAT ONE Administration Ibuprofen Confirm 07/17/23 05:28 Ibuprofen 600 Mg Tablet Administered 07/17/23 05:29 Dose 600 mg .ROUTE .STK-MED ONE Lab/Rad Data: Laboratory Result Diagrams 07/17/23 05:20 07/17/23 05:20 Laboratory Results 07/17/23 07/17/23 07/17/23 Range/Units 05:20 05:20 05:20 WBC (4.0-10.5) x10^3/uL RBC (4.1-5.4) x10^6/uL Hgb (12.0-16.0) g/dL Hct (35-47) % MCV (78-100) fL MCH (26-32) pg MCHC (32-36) g/dL RDW (11.5-14.0) % Plt Count (150-450) x10^3/uL MPV (7.5-11.0) fL Gran % (36.0-66.0) % Immature Gran % (Auto) (0.00-0.4) % Nucleat RBC Rel Count (0.00-0.1) % Eos # (Auto) (0-0.5) x10^3/uL Immature Gran # (Auto) (0.00-0.03) x10^3u/L Absolute Lymphs (auto) (1.0-4.6) x10^3/uL Absolute Monos (auto) (0.0-1.3) x10^3/uL Absolute Nucleated RBC (0.00-0.01) x10^3u/L Lymphocytes % (24.0-44.0) % Monocytes % (0.0-12.0) % Eosinophils % (0.00-5.0) % Basophils % (0.0-0.4) % Absolute Granulocytes (1.4-6.9) x10^3/uL Basophils # (0-0.4) x10^3/uL Sodium 140 (135-145) mmol/L Potassium 3.7 (3.5-5.1) mmol/L Chloride 109 H (98-107) mmol/L Carbon Dioxide 20 L (22-30) mmol/L Anion Gap 14.4 (5-15) MEQ/L BUN 10 (7-17) mg/dL Creatinine 0.49 L (0.52-1.04) mg/dL Estimated GFR 126.8 ML/MIN Glucose 163 H (74-106) mg/dL Calcium 8.9 (8.4-10.2) mg/dL Total Bilirubin 0.20 (0.2-1.3) mg/dL AST 64 H (14-36) U/L ALT 81 H (0-35) U/L Alkaline Phosphatase 117 (38-126) U/L Troponin I < 0.012 (0.000-0.034) ng/mL Serum Total Protein 7.4 (6.3-8.2) g/dL Albumin 4.2 (3.5-5.0) g/dL TSH 3rd Generation 2.790 (0.47-4.68) mIU/L //24 Range/Units 05:20 WBC 8.4 (4.0-10.5) x10^3/uL RBC 4.52 (4.1-5.4) x10^6/uL Hgb 12.9 (12.0-16.0) g/dL Hct 38.8 (35-47) % MCV 85.8 (78-100) fL MCH 28.5 (26-32) pg MCHC 33.2 (32-36) g/dL RDW 12.4 (11.5-14.0) % Plt Count 172 (150-450) x10^3/uL MPV 11.2 H (7.5-11.0) fL Gran % 67.7 H (36.0-66.0) % Immature Gran % (Auto) 0.2 (0.00-0.4) % Nucleat RBC Rel Count 0.0 (0.00-0.1) % Eos # (Auto) 0.14 (0-0.5) x10^3/uL Immature Gran # (Auto) 0.02 (0.00-0.03) x10^3u/L Absolute Lymphs (auto) 1.97 (1.0-4.6) x10^3/uL Absolute Monos (auto) 0.55 (0.0-1.3) x10^3/uL Absolute Nucleated RBC 0.00 (0.00-0.01) x10^3u/L Lymphocytes % 23.4 L (24.0-44.0) % Monocytes % 6.5 (0.0-12.0) % Eosinophils % 1.7 (0.00-5.0) % Basophils % 0.5 (0.0-0.4) % Absolute Granulocytes 5.69 (1.4-6.9) x10^3/uL Basophils # 0.04 (0-0.4) x10^3/uL Sodium (135-145) mmol/L Potassium (3.5-5.1) mmol/L Chloride (98-107) mmol/L Carbon Dioxide (22-30) mmol/L Anion Gap (5-15) MEQ/L BUN (7-17) mg/dL Creatinine (0.52-1.04) mg/dL Estimated GFR ML/MIN Glucose (74-106) mg/dL Calcium (8.4-10.2) mg/dL Total Bilirubin (0.2-1.3) mg/dL AST (14-36) U/L ALT (0-35) U/L Alkaline Phosphatase (38-126) U/L Troponin I (0.000-0.034) ng/mL Serum Total Protein (6.3-8.2) g/dL Albumin (3.5-5.0) g/dL TSH 3rd Generation (0.47-4.68) mIU/L <NOELLE RANDALL - Last Filed: 07/17/23 07:06> - Progress Counseled pt/family regarding: lab results, diagnosis, need for follow-up, rad results <MARTHA KEITH - Last Filed: 07/17/23 08:10> - Progress Progress Note: 07/17/23 05:49 given 600mg ibuprofen PO 07/17/23 07:06 I discussed pt case w/ Dr Keith who will assume care at this time (NOELLE RANDALL) 07/17/23 08:05 Patient is checked out to me at shift change from Dr. Nicholson with pending CT neck soft tissue. Patient presented with anterior neck pain/floor of mouth area pain for 1 week. Last night her pain was going down in the chest. EKG showed no acute ST elevations. Negative troponins. Chest x-ray no acute cardiopulmonary findings reviewed by Dr. Nicholson. I have reviewed the results of CT neck which is negative for any acute findings. Patient does though have little tenderness in the left upper anterior neck/submandibular area. I would give her a short course of steroid as it could be viral etiology enlarged lymph nodes. Stable vitals with a saturation of 97% on room air. PERC negative. Discussed signs symptoms of worsening needing return to ER which she seems understanding. Recommended outpatient primary care follow-up. Stable for discharge. (MARTHA KEITH) Medical Desision Making - Diagnostic Testing Radiological Interpretation: Reviewed by me - Risk of complications The pt has a mod risk of morbidity or mortality based on: Need for prescription drug management <MARTHA KEITH - Last Filed: 07/17/23 08:10> <NOELLE RANDALL - Last Filed: 07/17/23 07:06> - Departure Departure Disposition: Home Critical Care Time: No <MARTHA KEITH - Last Filed: 07/17/23 08:10> - Departure Clinical Impression: Neck pain Condition: Stable Referrals: MARTIN BROWN [Primary Care Provider] - Follow up with PCP 1 day Instructions: Angina (DC), Lymphadenitis (DC) Additional Instructions: Take Tylenol as needed. Follow-up with primary care for reevaluation. Return to ER for difficulty breathing, chest pain, throat closing sensation, difficulty swallowing etc. Prescriptions: Prednisone 20 mg [Deltasone 20 mg] 60 mg PO DAILY 5 Days #15 tablet
[2023-07-17 06:08] LABS: Absolute Neutrophil Ct (ANC) 5.69 x10^3/uL (1.4-6.9); BASOPHIL % 0.5 % (0.0-0.4); Basophil (Absolute #) 0.04 x10^3/uL (0-0.4); Eosinophil % 1.7 % (0.00-5.0); Eosinophil (Absolute #) 0.14 x10^3/uL (0-0.5); Hematocrit 38.8 % (35-47); Hemoglobin 12.9 g/dL (12.0-16.0); IMMATURE GRAN # 0.02 x10^3u/L (0.00-0.03); IMMATURE GRAN % 0.2 % (0.00-0.4); Lymphocyte (Absolute #) 1.97 x10^3/uL (1.0-4.6); Lymphocytes % 23.4 % (24.0-44.0); Mean Cell Volume 85.8 fL (78-100); Mean Corpuscular Hemoglobin 28.5 pg (26-32); Mean Corpuscular Hgb Concent. 33.2 g/dL (32-36); Mean Platelet Volume 11.2 fL (7.5-11.0); Monocyte (Absolute #) 0.55 x10^3/uL (0.0-1.3); Monocytes % 6.5 % (0.0-12.0); Neutrophil % 67.7 % (36.0-66.0); Platelet Count 172 x10^3/uL (150-450); Red Blood Count 4.52 x10^6/uL (4.1-5.4); Red Cell Distribution Width 12.4 % (11.5-14.0); White Blood Count 8.4 x10^3/uL (4.0-10.5)
[2023-07-17 06:25] LABS: ALBUMIN 4.2 g/dL (3.5-5.0); ANION GAP 14.4 MEQ/L (5-15); BILIRUBIN,TOTAL 0.2 mg/dL (0.2-1.3); Calcium 8.9 mg/dL (8.4-10.2); Creatinine 1 0.49 mg/dL (0.52-1.04); EST GLOMERULAR FILTRATION RATE 126.8 ML/MIN; Potassium 3.7 mmol/L (3.5-5.1); Total Protein 7.4 g/dL (6.3-8.2)
--- NOTE | 2023-07-17 07:44 | XRAY ---
CLINICAL HISTORY: neck pain TECHNIQUE: Computed tomography of the neck was performed with intravenous contrast. Contiguous axial images were obtained. Reformatted coronal and sagittal images were also reviewed. If IV contrast material had not been administered, the likelihood of detecting abnormalities relevant to the patients condition would have been substantially decreased. CT scan was performed according to ALARA (as low as reasonable achievable). COMPARISON: FINDINGS: Included intracranial substances, orbits, and paranasal sinuses are grossly unremarkable. Nasopharynx, oropharynx, oral cavity, hypopharynx and larynx are grossly unremarkable. Parotid, submandibular and thyroid glands are grossly unremarkable. Bilateral neck vessels are patent and show normal course, calibre and opacification. Scattered bilateral jugulo-digastric lymph nodes are present however, none are pathologically enlarged. Visualized included lung apices are grossly clear, and no acute osseous abnormality detected. IMPRESSION: 1. Unremarkable study. Electronically Signed by: Darren Sheehan MD. (07/17/2023 07:40:25 EDT)
[2023-07-17 07:53] VITALS: BP 116/69; PULSE 83; RESP 18; O2SAT 96
--- NOTE | 2023-07-17 08:55 | XRAY ---
Indication: Chest pain. Comparison: April 19, 2017 PA/lateral chest again demonstrates normal heart, lungs, and bony thorax.
== END 2023-07-17 08:43 | disposition home or self-care (01) ==
LOC: ED 05:04
DX: M54.2 Cervicalgia (principal); R07.9 Chest pain, unspecified; E78.5 Hyperlipidemia, unspecified; Z79.899 Other long term (current) drug therapy
CPT/HCPCS: 36000; 36415; 70491; 71046; 80053; 84443; 84484; 85025; 93005; 99284; A9270-GY

== ENCOUNTER 2024-01-17 12:56 | Emergency (ER) | payer SELFPAY ==
[2024-01-17 13:24] VITALS: TEMP 98.1; O2SAT 97
[2024-01-17] MEDS ORDERED: TORAdol 30 mg Injection ONE (14:03)
[2024-01-17] MEDS: TORAdol 30 mg Injection IV ONE (14:04)
[2024-01-17] MEDS: NORCO 7.5/325 MG TAB PO ONE (14:13)
--- NOTE | 2024-01-17 14:34 | XRAY ---
Indication: Pain. No known injury. Comparison: None 3 view right shoulder obtained. No bony, articular, or soft tissue abnormalities.
[2024-01-17] MEDS ORDERED: Zofran 4 MG/2 ML VIAL ONE (14:45)
[2024-01-17] MEDS ORDERED: MORPHINE SULFATE 4 MG INJ ONE (14:45)
[2024-01-17] MEDS: MORPHINE SULFATE 4 MG INJ IV ONE (14:46)
[2024-01-17] MEDS: Zofran 4 MG/2 ML VIAL IV ONE (14:46)
--- NOTE | 2024-01-17 15:04 | ERPHSYRPT ---
- History of Present Illness Time Seen by Provider: 01/17/24 14:59 Source: patient Exam Limitations: no limitations Patient Subjective Stated Complaint: Pain Triage Nursing Assessment: Patient ambulated back to ED and transferred self to bed. Patient A+O x 3. Patient's skin pink, warm and dry. Patient complains of ottoniel knee and left wrist pain for the past 3 weeks. Patient states the past couple of days she started having pain in her right shoulder 10/10. Patient denies injury or trauma. Physician History: 33-year-old female family history of diabetes rheumatoid arthritis presents to our ED with polyarthralgia at the knees and bilateral wrists. Symptoms started 3 weeks ago. Patient states her right shoulder started to hurt 2 days ago. Pain is significant. Pain worse with movement and palpation. Pain improves with rest. No trauma no fever no nausea vomiting or diaphoresis. Symptoms are moderate in intensity. Pain worse with movement and palpation pain improved with rest. Patient otherwise feels well. He voices no other complaints or concerns at this time. Portions of this note were created with voice recognition technology. There may be grammatical, spelling, punctuation or sound alike errors Timing/Duration: today Severity: moderate Modifying Factors: Improves With: nothing Associated Symptoms: denies symptoms Allergies/Adverse Reactions: No Known Drug Allergies Allergy (Verified 01/17/24 13:07) Home Medications: Sertraline HCl 50 mg [Zoloft 50 mg Tablet] 1 tab PO DAILY 11/05/22 [History] Atorvastatin Calcium 1 tab PO DAILY 01/17/24 [History] Metformin HCl [Metformin ER Osmotic] 1 tab PO DAILY 01/17/24 [History] Hx Tetanus, Diphtheria Vaccination/Date Given: Yes Hx Influenza Vaccination/Date Given: No Hx Pneumococcal Vaccination/Date Given: No Immunizations Up to Date: Yes Travel Risk - International Travel Have you traveled outside of the country in past 3 weeks: No - Emerging Infectious Disease Are you exhibiting symptoms associated with any current EIDs: No - Review of Systems Constitutional: No Symptoms, No Fever, No Chills Eyes: No Symptoms Ears, Nose, & Throat: No Symptoms Respiratory: No Symptoms, No Cough, No Dyspnea Cardiac: No Symptoms, No Chest Pain, No Edema, No Syncope Abdominal/Gastrointestinal: No Symptoms, No Abdominal Pain, No Nausea, No Vomiting, No Diarrhea Genitourinary Symptoms: No Symptoms, No Dysuria Musculoskeletal: No Symptoms, No Back Pain, No Neck Pain Skin: No Symptoms, No Rash Neurological: No Symptoms, No Dizziness, No Focal Weakness, No Sensory Changes Psychological: No Symptoms Endocrine: No Symptoms Hematologic/Lymphatic: No Symptoms Immunological/Allergic: No Symptoms All Other Systems: Reviewed and Negative - Past Medical History Pertinent Past Medical History: Yes Neurological History: No Pertinent History ENT History: No Pertinent History Cardiac History: High Cholesterol Respiratory History: No Pertinent History Endocrine Medical History: No Pertinent History Musculoskeletal History: No Pertinent History GI Medical History: No Pertinent History History: No Pertinent History Psycho-Social History: Anxiety, Depression Female Reproductive Disorders: No Pertinent History Other Medical History: HIGH CHOLESERTEOL, pt states 3 miscarrages noted - Past Surgical History Past Surgical History: Yes Neuro Surgical History: No Pertinent History Cardiac: No Pertinent History Respiratory: No Pertinent History Gastrointestinal: No Pertinent History Genitourinary: No Pertinent History Musculoskeletal: No Pertinent History Female Surgical History: Section, Tubal Ligation Other Surgical History: ablation Significant Family History: heart disease - Female History Hx Last Menstrual Period: last week Hx Now: No - Social History Smoking Status: Smoker, status unknown Exposure to second hand smoke: Yes Alcohol Use: Socially Drug Use: none Patient Lives Alone: No - Social Determinants of Health Will the patient participate in the screening: Yes Do you worry about a steady place to live?: No Do you have any problems with any of the following?: No known problems In the past 12 months,have you had to go without utilities?: No Transportation Issues: No Has anyone in your support network made you feel unsafe?: No Have you or anyone in your house had to go without enough: No - Nursing Vital Signs Nursing Vital Signs: Initial Vital Signs Pulse Rate 89 01/17/24 13:11 Respiratory Rate 22 01/17/24 13:11 Blood Pressure 115/76 01/17/24 13:11 O2 Sat by Pulse Oximetry 96 01/17/24 13:11 Pain Scale Pain Intensity 5 - Physical Exam General Appearance: no apparent distress, alert Eye Exam: PERRL/EOMI, eyes nml inspection Ears, Nose, Throat Exam: normal ENT inspection, TMs normal, pharynx normal, moist mucous membranes Neck Exam: normal inspection, non-tender, supple, full range of motion Respiratory Exam: normal breath sounds, lungs clear, airway intact, No respiratory distress Cardiovascular Exam: regular rate/rhythm, normal heart sounds, normal peripheral pulses Gastrointestinal/Abdomen Exam: soft, normal bowel sounds, No tenderness, No mass Back Exam: normal inspection, normal range of motion, No CVA tenderness, No alan tebral tenderness Extremity Exam: normal inspection, normal range of motion, pelvis stable Neurologic Exam: alert, oriented x 3, cooperative, normal mood/affect, nml cerebellar function, nml station & gait, sensation nml, No motor deficits Skin Exam: normal color, warm, dry, No rash Lymphatic Exam: No adenopathy SpO2 Interpretation: normal SpO2: 97 O2 Delivery: Room Air - Course Nursing assessment & vital signs reviewed: Yes - Radiology Exams Shoulder X-ray Interpretation: Teleradiologist Report (No acute findings) Ordered Tests: Active Orders 24 hr Category Date Time Status SHOULDER Stat Exams 01/17/24 14:00 Completed Medication Summary Discontinued Medications Generic Name Dose Route Start Last Admin Trade Name Freq PRN Reason Stop Dose Admin Hydrocodone Bitart/Acetaminophen 1 tab 01/17/24 13:57 01/17/24 14:13 Hydrocodone /Apap 7.5/325 Mg 1 Each Tablet PO 01/17/24 13:58 1 tab STAT ONE Administration Ketorolac Tromethamine 30 mg 01/17/24 13:57 01/17/24 14:04 Ketorolac Tromethamine 30 Mg/Ml Inj IV 01/17/24 13:58 30 mg STAT ONE Administration Ketorolac Tromethamine Confirm 01/17/24 14:03 Ketorolac Tromethamine 30 Mg/Ml Inj Administered 01/17/24 14:04 Dose 30 mg .ROUTE .STK-MED ONE Morphine Sulfate 4 mg 01/17/24 14:43 01/17/24 14:46 Morphine Sulfate 4 Mg/Ml Injection IV 01/17/24 14:44 4 mg STAT ONE Administration Morphine Sulfate Confirm 01/17/24 14:45 Morphine Sulfate 4 Mg/Ml Injection Administered 01/17/24 14:46 Dose 4 mg .ROUTE .STK-MED ONE Ondansetron HCl 4 mg 01/17/24 14:44 01/17/24 14:46 Ondansetron Hcl 4 Mg/2 Ml Vial IV 01/17/24 14:45 4 mg STAT ONE Administration Ondansetron HCl Confirm 01/17/24 14:45 Ondansetron Hcl 4 Mg/2 Ml Vial Administered 01/17/24 14:46 Dose 4 mg .ROUTE .XRONetMED ONE - Progress Progress: improved Progress Note: 33-year-old female presents to emergency department for evaluation of polyarthritic pain. Symptoms have been ongoing for approximately 3 weeks. Rheumatoid arthritis runs in her family. Patient's right shoulder is significantly tender. No trauma. X-ray right shoulder negative for acute findings. Patient is diabetic. Therefore we did not give her steroids. We control patient's pain with NSAID and [place]/morphine. Pain is well-controlled at this time. Patient is ready for discharge. She currently has an appointment scheduled to see her primary care doctor. Patient requested a prescription for steroids. She will take this as a last resort. She does have insulin at home and understands how to use a sliding scale insulin and she will implement as necessary if she decides to use the steroids. A prescription for [place] and Toradol forwarded to patient's pharmacy. Patient voices no other complaints or concerns at this time. Portions of this note were created with voice recognition technology. There may be grammatical, spelling, punctuation or sound alike errors Complexity problem addressed is moderate acute complicated. No critical care time. Complex data reviewed and analyzed is moderate. Test ordered test reviewed results analyzed and correlated clinically with history and physical exam. Risk of complication and or risk of morbidity/mortality patient management is high. Patient received IV morphine for pain control. She also received [place]. A prescription for [place] Toradol and prednisone forwarded to patient's pharmacy. Risk of complication at risk of morbidity/mortality of patient management is low. Vital stable. Time spent to discharge patient approximately 20 minutes. Plan of care established for shared decision making. No social determinants of health present to impede follow-up. Portions of this note were created with voice recognition technology. There may be grammatical, spelling, punctuation or sound alike errors 01/17/24 15:50 Counseled pt/family regarding: lab results, diagnosis, need for follow-up, rad results - Departure Departure Disposition: Home Clinical Impression: Polyarthralgia, Rheumatoid arthritis Condition: Stable Critical Care Time: No Referrals: MARTIN BROWN [Primary Care Provider] - Follow up/PCP as directed Additional Instructions: Discharge/Care Plan ALEX WILKINS was seen on 01/17/24 in the Emergency Room. The patient was counseled regarding Diagnosis,Lab results, Imaging studies, need for follow up and when to return to the Emergency Room. Prescriptions given: Discharge Note I have spoken with the patient and/or caregivers. I have explained the patient's condition, diagnosis and treatment plan based on the information available to me at this time. I have answered the patient's and/or caregiver's questions and addressed any concerns. The patient and/or caregivers have as good understanding of the patient's diagnosis, condition and treatment plan as can be expected at this point. The vital signs have been stable. The patient's condition is stable and appropriate for discharge from the emergency department. The patient will pursue further outpatient evaluation with the primary care physician or other designated or consulting physician as outlined in the discharge instructions. The patient and/or caregivers are agreeable to this plan of care and follow-up instructions have been explained in detail. The patient and/or caregivers have received these instruction. The patient/and or caregivers are aware that any significant change in condition or worsening of symptoms should prompt an immediate return to this or the closest emergency department or call 911. Prescriptions: Hydrocodone/APAP 5/325 [[place] 5/325 mg] 1 each PO Q6H PRN PRN #10 tablet MDD 4 PRN Reason: Pain Prednisone 10 mg [Deltasone 10 mg] 20 mg PO DAILY 3 Days #6 tablet Ketorolac Trometh 10 mg Tab [TORAdol 10 MG TABLET] 10 mg PO TID 5 Days #15 tablet
[2024-01-17 16:09] VITALS: BP 100/66; PULSE 84; RESP 18
== END 2024-01-17 16:17 | disposition home or self-care (01) ==
LOC: ED 12:56
DX: M06.9 Rheumatoid arthritis, unspecified (principal); M25.561 Pain in right knee; M25.562 Pain in left knee; M25.531 Pain in right wrist; M25.532 Pain in left wrist; M25.511 Pain in right shoulder; E11.9 Type 2 diabetes mellitus without complications; Z79.84 Long term (current) use of oral hypoglycemic drugs; Z79.891 Long term (current) use of opiate analgesic; Z79.52 Long term (current) use of systemic steroids; Z79.899 Other long term (current) drug therapy
CPT/HCPCS: 36000; 73030; 96374; 96375; 99284; J1885; J2270; J2405; A9270-GY

== ENCOUNTER 2025-03-10 20:51 | Emergency (ER) | payer BC ==
[2025-03-10 21:17] VITALS: TEMP 97.5; O2SAT 98
--- NOTE | 2025-03-10 21:25 | ERPHSYRPT ---
- History of Present Illness Source: patient, family Exam Limitations: no limitations Patient Subjective Stated Complaint: c/o back pain Triage Nursing Assessment: patient brought to ED by with c/o back pain. patient has back surgery in September and had no issues. On Tuesday patient was fixing couch and stood up and felt a burning pain. patient stated the pain has gotten worse and now radiating down her leg. patient vitals wnl, skin w/n/d, brought in by wheelchair, rating pain 10/10 Physician History: 35-year-old female with a history of low back problems states she was lifting a moving couch and had sudden onset of low back pain. States it radiates down her right leg. Denies about bowel bladder injuries. States pain is worse with movement. Patient denies bowel or bladder changes. Denies pain when sitting still. Pain is only worse when she moves. Timing/Duration: today Method of Injury: lifting Quality: radiating, aching, cramping Back Pain Location: lumbar spine Back Pain Radiation: buttocks, lower legs Severity of Pain-Max: moderate Severity of Pain-Current: moderate Modifying Factors: Improves With: movement Associated Symptoms: No fever, No chills, No urinary incontinence, No loss of bowel control, No nausea, No vomiting Previous symptoms: same symptoms as today, other (Patient has a history of chronic back problems seeing her provider tomorrow for potential MRI.) Allergies/Adverse Reactions: No Known Drug Allergies Allergy (Verified 01/17/24 13:07) Home Medications: Sertraline HCl 50 mg [Zoloft 50 mg Tablet] 100 tab PO DAILY 11/05/22 [History] Adalimumab-Adaz [Adalimumab-Adaz(Cf) Pen] 40 mg IJ .BIWEEKLY 03/10/25 [History] Buspirone HCl [Bucapsol] 10 mg PO BID 03/10/25 [History] Celecoxib 200 mg PO DAILY 03/10/25 [History] Omeprazole 40 mg PO DAILY 03/10/25 [History] Semaglutide [Ozempic] 1 mg SQ WEEKLY 03/10/25 [History] Trazodone HCl 50 mg [Desyrel 50 mg] 50 mg PO DAILY 03/10/25 [History] Hx Tetanus, Diphtheria Vaccination/Date Given: Yes Hx Influenza Vaccination/Date Given: No Hx Pneumococcal Vaccination/Date Given: No Travel Risk - International Travel Have you traveled outside of the country in past 3 weeks: No - Emerging Infectious Disease Are you exhibiting symptoms associated with any current EIDs: No - Past Medical History Pertinent Past Medical History: Yes Neurological History: No Pertinent History ENT History: No Pertinent History Cardiac History: High Cholesterol Respiratory History: No Pertinent History Endocrine Medical History: Diabetes Type II Musculoskeletal History: No Pertinent History GI Medical History: No Pertinent History History: No Pertinent History Psycho-Social History: Anxiety, Depression Female Reproductive Disorders: No Pertinent History Other Medical History: HIGH CHOLESERTEOL, pt states 3 miscarrages noted - Past Surgical History Past Surgical History: Yes Neuro Surgical History: No Pertinent History Cardiac: No Pertinent History Respiratory: No Pertinent History Gastrointestinal: No Pertinent History Genitourinary: No Pertinent History Musculoskeletal: No Pertinent History Female Surgical History: Section, Tubal Ligation Other Surgical History: ablation, arthroscopy on left wrist, back surgery L5-S1 Significant Family History: heart disease - Female History Hx Last Menstrual Period: FEB 12, 2025 Hx Now: No - Social History Smoking Status: Smoker, status unknown Exposure to second hand smoke: Yes Drug Use: none - Social Determinants of Health Will the patient participate in the screening: Yes Do you worry about a steady place to live?: No Do you have any problems with any of the following?: No known problems In the past 12 months,have you had to go without utilities?: No Transportation Issues: No Has anyone in your support network made you feel unsafe?: No Have you or anyone in your house had to go w/o enough food: No - Nursing Vital Signs Nursing Vital Signs: Initial Vital Signs Temperature 97.5 F 03/10/25 21:07 Pulse Rate 102 H 03/10/25 21:07 Respiratory Rate 20 03/10/25 21:07 Blood Pressure 125/86 03/10/25 21:07 O2 Sat by Pulse Oximetry 98 03/10/25 21:07 Pain Scale Pain Intensity [Lower Back] 10 Pain Intensity 10 - Physical Exam General Appearance: no apparent distress Eye Exam: PERRL/EOMI, eyes nml inspection Neck Exam: normal inspection, non-tender, supple, full range of motion, No meningismus, No midline tenderness Respiratory Exam: normal breath sounds, lungs clear, No respiratory distress Cardiovascular Exam: regular rate/rhythm, normal heart sounds Gastrointestinal Exam: soft, No tenderness, No mass Back Exam: normal inspection, other (Diffuse tenderness throughout the lower lumbar area. No focal bony tenderness appreciated.) Extremity Exam: normal inspection, normal range of motion, No calf tenderness, No pedal edema Neurologic Exam: alert, oriented x 3, cooperative, snuff box finisher II-XII nml as tested, normal mood/affect, nml station & gait, sensation nml, No motor deficits Skin Exam: normal color, warm, dry, No rash SpO2 Interpretation: normal SpO2: 98 Procedures - Additional Procedures Progress: Procedure: Trigger point injections. Physician: Owns. Consent: Obtained. 10 mL of 1% lidocaine with epinephrine was injected in 3 separate sites along the paraspinal region from the lower lumbar to upper sacral area. Alcohol prep was used to cleanse area. Needle was withdrawn and sure no blood return. An approximate 2 mL was injected to each separate site. Patient tolerated procedure well. Estimated blood loss: Minimal. Ordered Tests: Active Orders 24 hr Category Date Time Status CULTURE,URINE Stat Lab 03/10/25 21:27 Received UA W/RFX UR CULTURE Stat Lab 03/10/25 21:27 Completed Medication Summary Discontinued Medications Generic Name Dose Route Start Last Admin Trade Name Freq PRN Reason Stop Dose Admin Ketorolac Tromethamine 30 mg 03/10/25 21:22 03/10/25 21:30 Ketorolac Tromethamine 30 Mg/Ml Inj IM 03/10/25 21:23 30 mg STAT ONE Administration Ketorolac Tromethamine Confirm 03/10/25 21:28 Ketorolac Tromethamine 30 Mg/Ml Inj Administered 03/10/25 21:29 Dose 30 mg .ROUTE .STK-MED ONE Lidocaine HCl 10 ml 03/10/25 21:25 03/10/25 21:29 Lidocaine Hcl 1% 20 Ml Mdv 20 Ml Ml IJ 03/10/25 21:26 10 ml STAT STA Administration Lidocaine HCl Confirm 03/10/25 21:29 Lidocaine Hcl 1% 20 Ml Mdv 20 Ml Ml Administered 03/10/25 21:30 Dose 10 ml .ROUTE .STK-MED ONE Morphine Sulfate 4 mg 03/10/25 22:26 03/10/25 22:42 Morphine Sulfate 4 Mg/Ml Injection IM 03/10/25 22:27 4 mg STAT ONE Administration Morphine Sulfate Confirm 03/10/25 22:40 Morphine Sulfate 4 Mg/Ml Injection Administered 03/10/25 22:41 Dose 4 mg .ROUTE .STK-MED ONE Lab/Rad Data: Laboratory Results 03/10/25 Range/Units 21:27 Urine Color Yellow (Yellow) Urine Appearance Cloudy A (Clear) Urine pH 5.5 (4.6-8.0) Ur Specific [place] >=1.030 A (1.005-1.030) Urine Protein 30 (Negative) Urine Glucose (UA) Negative (Negative) mg/dL Urine Ketones Trace A (Negative) Urine Blood Negative (Negative) Urine Nitrite Negative (Negative) Urine Bilirubin Negative (Negative) Urine Urobilinogen 1.0 A (0.2) mg/dL Ur Leukocyte Esterase Negative (Negative) U Hyaline Cast (Auto) NONE SEEN (0-2) /LPF Urine Microscopic RBC 0-2 (0-5) /HPF Urine Microscopic WBC 6-10 A (0-5) /HPF Ur Epithelial Cells Moderate A (None Seen) /HPF Urine Bacteria Many A (None Seen) /HPF Urine Culture Reflexed YES (NO) - Progress Progress Note: 03/10/25 22:27 Follow-up evaluation, the patient states she still having some back pain. States is chronic and she states she has Voltaren cream, Tylenol Motrin, and a few cyclobenzaprine's at home that she takes. Patient is apprehensive about the steroids as they generally do not help and it affects her blood sugar. After discussion with the patient we will provide her an injection of IM morphine while she is here and discharge her with some gabapentin and some additional cyclobenzaprine as needed. Medical Decision Making signs symptoms most consistent with acute exacerbation of chronic back pain that occurred when she was lifting. Low special for cauda equina, masses, infection. Low suspicion for UTI. Consistent with mechanical back pain that was exacerbated by activities. Patient is following up with her provider tomorrow. - Departure Clinical Impression: Low back pain, Radiculopathy Condition: Stable Critical Care Time: No Referrals: WOODROW BARBOSA DO [Primary Care Provider, [facility]] - Follow up/PCP as directed Instructions: Low Back Pain (DC) Additional Instructions: Discharge/Care Plan ALEX WILKINS was seen on 03/10/25 in the Emergency Room. The patient was counseled regarding Diagnosis,Lab results, Imaging studies, need for follow up and when to return to the Emergency Room. Prescriptions given: Discharge Note I have spoken with the patient and/or caregivers. I have explained the patient's condition, diagnosis and treatment plan based on the information available to me at this time. I have answered the patient's and/or caregiver's questions and addressed any concerns. The patient and/or caregivers have as good understanding of the patient's diagnosis, condition and treatment plan as can be expected at this point. The vital signs have been stable. The patient's condition is stable and appropriate for discharge from the emergency department. The patient will pursue further outpatient evaluation with the primary care physician or other designated or consulting physician as outlined in the discharge instructions. The patient and/or caregivers are agreeable to this plan of care and follow-up instructions have been explained in detail. The patient and/or caregivers have received these instruction. The patient/and or caregivers are aware that any significant change in condition or worsening of symptoms should prompt an immediate return to this or the closest emergency department or call 911. Follow-up with your provider Schedule as mentioned tomorrow Return to the ED if bowel or bladder changes, fever, worsening, or further concerns Use ice and heat as needed You may also continue Tylenol Motrin as needed for your pain. Prescriptions: Cyclobenzaprine HCl 10 mg [Cyclobenzaprine 10 MG] 10 mg PO TIDPRN 4 Days #12 tablet Gabapentin [Neurontin ] 300 mg PO DAILY 7 Days #7 cap
[2025-03-10] MEDS ORDERED: TORAdol 30 mg Injection ONE (21:28)
[2025-03-10] MEDS ORDERED: XYLOCAINE 1% HCL 20 ML MDV ONE (21:29)
[2025-03-10] MEDS: XYLOCAINE 1% HCL 20 ML MDV IJ STA (21:29)
[2025-03-10] MEDS: TORAdol 30 mg Injection IM ONE (21:30)
[2025-03-10 22:31] VITALS: PULSE 88; RESP 17
[2025-03-10] MEDS ORDERED: MORPHINE SULFATE 4 MG INJ ONE (22:40)
[2025-03-10 22:41] LABS: Glucose, Urine Negative (Negative); Protein,Urine Dip 30 (Negative); RBC 0-2 /HPF (0-5)
[2025-03-10] MEDS: MORPHINE SULFATE 4 MG INJ IM ONE (22:42)
[2025-03-10 23:00] VITALS: BP 115/85
== END 2025-03-10 23:03 | disposition home or self-care (01) ==
LOC: ED 20:51
DX: M54.50 Low back pain, unspecified (principal); M54.10 Radiculopathy, site unspecified; E11.9 Type 2 diabetes mellitus without complications; Z79.85 Long-term (current) use of injectable non-insulin antidiabetic drugs; Z79.899 Other long term (current) drug therapy